=== PATIENT | male | born 1980 | race Caucasian/White ===

== ENCOUNTER 2020-01-06 10:29 | Emergency (ER) | payer SELFPAY ==
[2020-01-06] MEDS ORDERED: Aspirin 81 MG Tab.Chew PO ONE (10:40)
[2020-01-06] MEDS ORDERED: Nitroglycerin 0.4 MG Tab.SL SL PRN (10:40)
--- NOTE | 2020-01-06 10:40 | EDM.PDOC ---
ED HPI GENERAL MEDICAL PROBLEM - General Chief Complaint: Chest Pain Stated Complaint: CHEST PAINS Time Seen by Provider: 01/06/20 10:40 Source of Information: Reports: Patient, RN, RN Notes Reviewed History Limitations: Reports: No Limitations - History of Present Illness INITIAL COMMENTS - FREE TEXT/NARRATIVE: Pt presents to ER from home by POV with c/o onset of chest pain this morning while at rest. Pt report 3 days of feeling extra or skipped heart beats. Denies Hx of CAD, MD, or arrhythmias. Denies cough, edema, orthopnea, fever, chills, or COVID exposure. Onset: Today Duration: Constant Location: Reports: Chest Quality: Reports: Ache, Pressure Severity: Moderate Improves with: Reports: None Worsens with: Reports: None Associated Symptoms: Reports: No Other Symptoms - Related Data Allergies Allergy/AdvReac Type Severity Reaction Status Date / Time Penicillins Allergy Rash Verified 01/06/20 10:43 Home Meds: Home Meds . [No Known Home Meds] 01/06/20 [History] Past Medical History - Past Health History Medical/Surgical History: Denies Medical/Surgical History Social & Family History - Family History Family Medical History: Noncontributory - Living Situation & Occupation Living situation: Reports: with Family Occupation: Employed ED ROS GENERAL - Review of Systems Review Of Systems: Comprehensive ROS is negative, except as noted in HPI. ED EXAM, GENERAL - Physical Exam Exam: See Below Exam Limited By: No Limitations General Appearance: Alert, WD/WN, No Apparent Distress, Anxious Eye Exam: Bilateral Eye: Normal Inspection Nose: Normal Inspection Throat/Mouth: Normal Inspection, Normal Lips, Normal Voice, No Airway Compromise Head: Atraumatic, Normocephalic Neck: Normal Inspection, Full Range of Motion Respiratory/Chest: No Respiratory Distress, Lungs Clear, Normal Breath Sounds, No Accessory Muscle Use, Chest Non-Tender Cardiovascular: Normal Peripheral Pulses, Regular Rate, Rhythm, No Edema, No Gallop, No JVD, No Murmur, No Rub GI/Abdominal: Normal Bowel Sounds, Soft, Non-Tender, No Organomegaly, No Distention, No Abnormal Bruit, No Mass Back Exam: Normal Inspection Extremities: Normal Inspection, Normal Range of Motion, Non-Tender, No Pedal Edema, Normal Capillary Refill. No: Joint Swelling, Thony's Sign Neurological: Alert, Oriented, CN II-XII Intact, Normal Cognition, Normal Gait, No Motor/Sensory Deficits Psychiatric: Normal Affect, Anxious Skin Exam: Warm, Dry, Intact, Normal Color, No Rash EKG INTERPRETATION EKG Date: 01/06/20 Time: 10:42 Rhythm: Other (SR) Rate (Beats/Min): 66 [place]: Normal P-Wave: Present QRS: Normal ST-T: Normal QT: Normal Comparison: NA - No Prior EKG EKG Interpretation Comments: No acute ischemic changes. Course - Vital Signs Last Recorded V/S: Last Vital Signs Temp 98.7 F 01/06/20 10:44 Pulse 68 01/06/20 10:44 Resp 14 01/06/20 10:44 BP 126/80 01/06/20 10:44 Pulse Ox 99 01/06/20 10:44 - Orders/Labs/Meds Orders: Active Orders 24 hr Category Date Time Status EKG 12 Lead [EKG Documentation Completion] [RC] STAT Care 01/06/20 10:41 Active Peripheral IV Care [RC] . DIRECTED Care 01/06/20 10:41 Active D Dimer [D-DIMER QUANTITATIVE] [COAG] Stat Lab 01/06/20 10:49 Results INR,PT,PROTHROMBIN TIME [COAG] Stat Lab 01/06/20 10:49 Results PTT,PARTIAL THROMBOPLSTIN TIME [COAG] Stat Lab 01/06/20 10:49 Results Nitroglycerin [Nitrostat] Med 01/06/20 10:40 Active 0.4 mg SL Q5M PRN Sodium Chloride 0.9% [Saline Flush] Med 01/06/20 10:41 Active 10 ml FLUSH ASDIRECTED PRN Peripheral IV Insertion Adult [OM.PC] Stat Oth 01/06/20 10:41 Ordered Medication Orders Nitroglycerin (Nitrostat) 0.4 mg SL Q5M PRN PRN Reason: Chest Pain Sodium Chloride (Saline Flush) 10 ml FLUSH ASDIRECTED PRN PRN Reason: Keep Vein Open Last Admin: 01/06/20 10:56 Dose: 10 ml Documented by: ARCHIE Labs: Laboratory Tests 01/06/20 01/06/20 01/06/20 Range/Units 10:49 10:49 10:49 WBC 8.6 (5.0-10.0) 10^3/uL RBC 5.01 (4.6-6.2) 10^6/uL Hgb 15.7 (14.0-18.0) g/dL Hct 43.4 (40.0-54.0) % MCV 86.6 (80-100) fL MCH 31.3 (27.0-34.0) pg MCHC 36.2 H (33.0-35.0) g/dL Plt Count 193 (150-450) 10^3/uL Neut % (Auto) 55.7 (42.2-75.2) % Lymph % (Auto) 34.0 (20.5-50.1) % Wood % (Auto) 7.5 (2-8) % Eos % (Auto) 2.1 (1.0-3.0) % Baso % (Auto) 0.7 (0.0-1.0) % D-Dimer, Quantitative < 100 (0-400) ng/mL Sodium 139 (136-145) mmol/L Potassium 3.6 (3.5-5.1) mmol/L Chloride 105 (98-107) mmol/L Carbon Dioxide 26 (21-32) mmol/L Anion Gap 11.6 (7-13) mEq/L BUN 15 (7-18) mg/dL Creatinine 1.15 (0.70-1.30) mg/dL Est Cr Clr Drug Dosing 86.24 mL/min Estimated GFR (MDRD) > 60 BUN/Creatinine Ratio 13.0 (No establ ref range) Glucose 107 H (74-99) mg/dL Calcium 8.0 L (8.5-10.1) mg/dL Magnesium 1.9 (1.8-2.4) mg/dL Total Bilirubin 0.4 (0.2-1.0) mg/dL AST 19 (15-37) U/L ALT 27 (16-63) U/L Alkaline Phosphatase 120 H (46-116) U/L Troponin I < 0.017 (0.000-0.056) ng/mL Total Protein 6.5 (6.4-8.2) g/dL Albumin 3.6 (3.4-5.0) g/dL Globulin 2.9 Albumin/Globulin Ratio 1.2 Lipase 209 (73-393) U/L TSH, Ultra Sensitive 2.65 (0.36-3.74) uIU/mL Meds: Medications Generic Name Dose Route Start Last Admin Trade Name Freq PRN Reason Stop Dose Admin Nitroglycerin 0.4 mg 01/06/20 10:40 Nitrostat SL Q5M PRN Chest Pain Sodium Chloride 10 ml 01/06/20 10:41 01/06/20 10:56 Saline Flush FLUSH 10 ml ASDIRECTED PRN Administration Keep Vein Open Discontinued Medications Generic Name Dose Route Start Last Admin Trade Name Freq PRN Reason Stop Dose Admin Aspirin 324 mg 01/06/20 10:40 01/06/20 10:55 Aspirin PO 01/06/20 10:41 324 mg ONETIME ONE Administration - Radiology Interpretation Free Text/Narrative:: [facility] Final Radiology Report Call: [phone] assistance Online chat: [email or web address] Name: EBONI LEE Age: 39Years M Date: 01/06/2020 SSN: -- : [id number] Study: CR CHEST 1V FRONTAL Requesting Physician: JOAO WASHBURN Images: 1 Addl Studies: Provided Clinical History: chest pain Contrast: Contrast Medium: Contrast Amount: Contrast Method: CONFIDENTIALITY STATEMENT This report is intended only for use by the referring physician, and only in accordance with law. If you received this in error, call [phone]. Page 1 of 1 PROCEDURE INFORMATION: Exam: XR Chest, 1 View Exam date and time: 01/06/2020 10:47 AM Age: 39 years old Clinical indication: Other: Chest pain TECHNIQUE: Imaging protocol: XR of the chest Views: 1 view. COMPARISON: No relevant prior studies available. FINDINGS: Lungs: The lungs are normally expanded and clear. Pleural space: Normal. Heart/Mediastinum: Normal heart and cardiomediastinal silhouette. Vasculature: Normal pulmonary vessel caliber. Normal aorta. Bones/joints: The bones are intact. IMPRESSION: No evident disease or abnormalities. Thank you for allowing us to participate in the care of your patient. Dictated and Authenticated by: Eboni Cole MD 01/06/2020 11:00 AM Central Time ([place] & [place]) Departure - Departure Time of Disposition: 11:57 Disposition: Home, Self-Care 01 Condition: Good Clinical Impression: PVC's (premature ventricular contractions), Atypical chest pain Instructions: Premature Ventricular Contraction, Nonspecific Chest Pain, Adult, [id number] Forms: ED Department Discharge Additional Instructions: May try over the counter Magnesium supplement 500mg once daily. Follow up in clinic in 3 to 5 days for recheck. Sepsis Event Note (ED) - Focused Exam Vital Signs: Vital Signs Temp Pulse Resp BP Pulse Ox 01/06/20 10:44 98.7 F 68 14 126/80 99 - My Orders Last 24 Hours: My Active Orders 01/06/20 10:40 Nitroglycerin [Nitrostat] 0.4 mg SL Q5M PRN 01/06/20 10:41 EKG 12 Lead [EKG Documentation Completion] [RC] STAT Peripheral IV Care [RC] . DIRECTED Sodium Chloride 0.9% [Saline Flush] 10 ml FLUSH ASDIRECTED PRN Peripheral IV Insertion Adult [OM.PC] Stat 01/06/20 10:49 D Dimer [D-DIMER QUANTITATIVE] [COAG] Stat INR,PT,PROTHROMBIN TIME [COAG] Stat PTT,PARTIAL THROMBOPLSTIN TIME [COAG] Stat - Assessment/Plan Last 24 Hours: My Active Orders 01/06/20 10:40 Nitroglycerin [Nitrostat] 0.4 mg SL Q5M PRN 01/06/20 10:41 EKG 12 Lead [EKG Documentation Completion] [RC] STAT Peripheral IV Care [RC] . DIRECTED Sodium Chloride 0.9% [Saline Flush] 10 ml FLUSH ASDIRECTED PRN Peripheral IV Insertion Adult [OM.PC] Stat 01/06/20 10:49 D Dimer [D-DIMER QUANTITATIVE] [COAG] Stat INR,PT,PROTHROMBIN TIME [COAG] Stat PTT,PARTIAL THROMBOPLSTIN TIME [COAG] Stat
[2020-01-06] MEDS ORDERED: Sodium Chloride 0.9% 10 ML Syringe FLUSH PRN (10:41)
--- NOTE | 2020-01-06 11:00 | CR ---
PROCEDURE INFORMATION: Exam: XR Chest, 1 View Exam date and time: 01/06/2020 10:47 AM Age: 39 years old Clinical indication: Other: Chest pain TECHNIQUE: Imaging protocol: XR of the chest Views: 1 view. COMPARISON: No relevant prior studies available. FINDINGS: Lungs: The lungs are normally expanded and clear. Pleural space: Normal. Heart/Mediastinum: Normal heart and cardiomediastinal silhouette. Vasculature: Normal pulmonary vessel caliber. Normal aorta. Bones/joints: The bones are intact. IMPRESSION: No evident disease or abnormalities.
[2020-01-06 11:21] LABS: ANION GAP 11.6 mEq/L (7-13); CHLORIDE,CL 105 mmol/L (98-107); SODIUM,NA 139 mmol/L (136-145)
[2020-01-06 12:03] LABS: PTT,PARTIAL THROMBOPLSTIN TIME 22.3 SEC (22.0-34.0)
== END 2020-01-06 12:05 | disposition home or self-care (01) ==
LOC: DL.ED 10:29
DX: I49.3 Ventricular premature depolarization (principal); Z88.0 Allergy status to penicillin
CPT/HCPCS: 36415; 71045; 80053; 83690; 83735; 84443; 84484; 85025; 85379; 85610; 85730; 93005; 99285-25; A9270-GY

== ENCOUNTER 2020-01-18 00:55 | Emergency (ER) | payer OTHER ==
[2020-01-18] MEDS ORDERED: Iopamidol 612 MG/ML 100 ML Bottle IVPUSH ONE (00:56)
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
[2020-01-18 01:43] LABS: ANION GAP 16.5 mEq/L (7-13); CHLORIDE,CL 106 mmol/L (98-107); SODIUM,NA 143 mmol/L (136-145)
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
[2020-01-18 01:50] LABS: PTT,PARTIAL THROMBOPLSTIN TIME 20.3 SEC (22.0-34.0)
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
== END 2020-01-18 03:30 ==
LOC: DL.ED 00:55
DX: G93.6 Cerebral edema (principal); Z88.0 Allergy status to penicillin; Z90.49 Acquired absence of other specified parts of digestive tract
CPT/HCPCS: 36415; 70450; 71260; 72125; 74177; 80053; 80307; 85025; 85610; 85730; 99285; Q9967

== ENCOUNTER 2020-10-25 13:06 | Emergency (ER) | payer MEDICAID ==
[2020-10-25] MEDS ORDERED: Sodium Chloride 0.9% 1,000 ML IV ONE (16:30)
[2020-10-25] MEDS ORDERED: Ondansetron 4 MG/2 ML SDV IV ONE (16:30)
[2020-10-25] MEDS ORDERED: Sodium Chloride 0.9% 10 ML Syringe FLUSH PRN (16:30)
--- NOTE | 2020-10-25 16:30 | EDM.PDOC ---
<Olivia Barajas - Last Filed: 10/26/20 04:46> ED HPI GENERAL MEDICAL PROBLEM - General Chief Complaint: Gastrointestinal Problem Stated Complaint: [id number] CAN'T KEEP ANYTHING DOWN Time Seen by Provider: 10/25/20 16:29 - History of Present Illness INITIAL COMMENTS - FREE TEXT/NARRATIVE: Saul is a 39 y/o male who presents to the ED via personal vehicle with complaints of nausea, vomiting, and abdominal pain. The patient reports his symptoms began at approximately 0500 and has progressively worsened in that time. The patient has taken antacids and Pepto Bismol with [id number] alleviation of symptoms. He rates his abdominal pain at a 3/10 which he characterizes as a burning. He denies recent illness, fever, shaking chills, palpitations, dysuria, or diarrhea. He states he is concerned he has become dehydrated from the frequency with which he has been vomiting. He attests to smoking one pack of cigarettes per day; he denies alcohol or recreational drug use. - Related Data Allergies Allergy/AdvReac Type Severity Reaction Status Date / Time Penicillins Allergy Rash Verified 10/25/20 14:19 Home Meds: Home Meds . [No Known Home Meds] 01/06/20 [History] Course - Re-Assessments/Exams Free Text/Narrative Re-Assessment/Exam: 10/25/20 NS 1L bolus initiated. Zofran IVP and famotidine IVP ordered. WBC slightly elevated at 10.5, no left shift appreciated. Hgb WNL at 16.8. Electrolytes, kidney function, and liver function appropriate via CMP. Amylase and Lipase normal. Total Bili slightly elevated at 1.2 UA unremarkable. Findings of lab work reviewed with patient. Will treat with Zofran ODT and famotidine. Patient states pain to epigastric region still present following medication and IVF, however he is requesting to leave the ED to "..go get a pop." Discussed supportive cares and avoidance of carbonation while experiencing gastrointestinal symptoms. Patient left ED without prescriptions or discharge instructions. Departure - Departure Time of Disposition: 19:07 Disposition: Home, Self-Care 01 Condition: Good Clinical Impression: Gastritis Qualifiers: Gastritis type: unspecified gastritis Chronicity: acute Gastritis bleeding: without bleeding Qualified Code(s): K29.00 - Acute gastritis without bleeding Vomiting Qualifiers: Vomiting type: unspecified Vomiting Intractability: non-intractable Nausea presence: with nausea Qualified Code(s): R11.2 - Nausea with vomiting, unspecified - Discharge Information *PRESCRIPTION DRUG MONITORING PROGRAM REVIEWED*: Not Applicable *COPY OF PRESCRIPTION DRUG MONITORING REPORT IN PATIENT [place]: Not Applicable Instructions: Gastritis, Adult, [id number], Nausea and Vomiting, Adult Referrals: PCP,None [Primary Care Provider] - Forms: ED Department Discharge Additional Instructions: Rx: Zofran Rx: famotidine 1.) Drink small sips of water, frequently to avoid vomiting. 2.) Eat small, snack-like meals. 3.) Eat a bland diet, avoiding spicy, greasy, and high-fat foods. <Bhupinder Moreira - Last Filed: 10/26/20 08:12> ED HPI GENERAL MEDICAL PROBLEM - General Source of Information: Reports: Patient, RN, RN Notes Reviewed History Limitations: Reports: No Limitations Abdominal Pain Score (Numeric/FACES): 3 Past Medical History - Past Health History Medical/Surgical History: Denies Medical/Surgical History Genitourinary History: Reports: STD - Past Surgical History GI Surgical History: Reports: Appendectomy, Cholecystectomy Social & Family History - Family History Family Medical History: No Pertinent Family History - Tobacco Use Tobacco Use Status *Q: Current Every Day Tobacco User Years of Tobacco use: 25 Packs/Tins Daily: 1 - Caffeine Use Caffeine Use: Reports: Coffee, Energy Drinks - Recreational Drug Use Recreational Drug Use: No Drug Use in Last 12 Months: No - Living Situation & Occupation Living situation: Reports: with Family Occupation: Employed ED ROS GENERAL - Review of Systems Review Of Systems: Comprehensive ROS is negative, except as noted in HPI. ED EXAM, GI/ABD - Physical Exam Exam: See Below Exam Limited By: No Limitations General Appearance: Alert, WD/WN, No Apparent Distress Eyes: Bilateral: Normal Appearance (No scleral icterus) Nose: Normal Inspection Throat/Mouth: Normal Lips, Normal Voice, No Airway Compromise Head: Atraumatic, Normocephalic Neck: Normal Inspection, Non-Tender, Full Range of Motion Respiratory/Chest: No Respiratory Distress, Lungs Clear, Normal Breath Sounds, No Accessory Muscle Use, Chest Non-Tender Cardiovascular: Normal Peripheral Pulses, Regular Rate, Rhythm, No Edema, No Gallop, No JVD, No Murmur, No Rub GI/Abdominal Exam: Normal Bowel Sounds, Soft, No Organomegaly, No Distention, No Abnormal Bruit, Tender (Mild epigastric tenderness). No: Guarding, Rigid, Rebound Back Exam: Normal Inspection Extremities: Normal Inspection Neurological: Alert, Oriented, No Motor/Sensory Deficits Psychiatric: Normal Mood Skin Exam: Warm, Dry, Intact, Normal Color, No Rash Course - Vital Signs Last Recorded V/S: Last Vital Signs Temp 98.2 F 10/25/20 14:12 Pulse 100 10/25/20 14:12 Resp 16 10/25/20 14:12 BP 156/111 H 10/25/20 14:12 Pulse Ox 99 10/25/20 14:12 - Orders/Labs/Meds Orders: Active Orders 24 hr Category Date Time Status Peripheral IV Insertion Adult [OM.PC] Stat Oth 10/25/20 16:30 Ordered Labs: Laboratory Tests 10/25/20 10/25/20 10/25/20 Range/Units 16:42 16:42 17:32 WBC 10.5 H (5.0-10.0) 10^3/uL RBC 5.40 (4.6-6.2) 10^6/uL Hgb 16.8 D (14.0-18.0) g/dL Hct 46.5 (40.0-54.0) % MCV 86.1 (80-100) fL MCH 31.1 (27.0-34.0) pg MCHC 36.1 H (33.0-35.0) g/dL Plt Count 244 (150-450) 10^3/uL Neut % (Auto) 63.8 (42.2-75.2) % Lymph % (Auto) 25.4 (20.5-50.1) % [place] % (Auto) 9.9 H (2-8) % Eos % (Auto) 0.5 L (1.0-3.0) % Baso % (Auto) 0.4 (0.0-1.0) % Sodium 141 (136-145) mmol/L Potassium 3.6 (3.5-5.1) mmol/L Chloride 102 (98-107) mmol/L Carbon Dioxide 27 (21-32) mmol/L Anion Gap 15.6 H (7-13) mEq/L BUN 24 H (7-18) mg/dL Creatinine 1.24 (0.70-1.30) mg/dL Est Cr Clr Drug Dosing 79.98 mL/min Estimated GFR (MDRD) > 60 BUN/Creatinine Ratio 19.4 (No establ ref range) Glucose 109 H (70-99) mg/dL Calcium 8.6 (8.5-10.1) mg/dL Total Bilirubin 1.2 H (0.2-1.0) mg/dL AST 49 H (15-37) U/L ALT 44 (16-63) U/L Alkaline Phosphatase 120 H (46-116) U/L Total Protein 7.6 (6.4-8.2) g/dL Albumin 4.3 (3.4-5.0) g/dL Globulin 3.3 Albumin/Globulin Ratio 1.3 Amylase 35 (25-115) U/L Lipase 86 (73-393) U/L Urine Color Yellow (YELLOW) Urine Appearance Clear (CLEAR) Urine pH 6.5 (5.0-9.0) Ur Specific [place] 1.010 (1.005-1.030) Urine Protein Negative (NEGATIVE) Urine Glucose (UA) Negative (NEGATIVE) Urine Ketones Trace H (NEGATIVE) Urine Occult Blood Negative (NEGATIVE) Urine Nitrite Negative (NEGATIVE) Urine Bilirubin Negative (NEGATIVE) Urine Urobilinogen 0.2 (0.2-1.0) mg/dL Ur Leukocyte Esterase Negative (NEGATIVE) Meds: Medications Discontinued Medications Generic Name Dose Route Start Last Admin Trade Name Freq PRN Reason Stop Dose Admin Famotidine 20 mg 10/25/20 16:31 10/25/20 16:48 Famotidine 20 Mg/2 Ml Sdv IVPUSH 10/25/20 16:32 20 mg ONETIME ONE Administration Sodium Chloride 1,000 mls @ 999 mls/hr 10/25/20 16:30 10/25/20 16:48 Normal Saline IV 10/25/20 17:30 999 mls/hr .BOLUS ONE Administration Ondansetron HCl 4 mg 10/25/20 16:30 10/25/20 16:48 Ondansetron 4 Mg/2 Ml Sdv IV 10/25/20 16:31 4 mg ONETIME ONE Administration Sodium Chloride 10 ml 10/25/20 16:30 10/25/20 16:48 Sodium Chloride 0.9% 10 Ml Syringe FLUSH 10 ml ASDIRECTED PRN Administration Keep Vein Open Sepsis Event Note (ED) - Evaluation Sepsis Screening Result: No Definite Risk - My Orders Last 24 Hours: My Active Orders 10/25/20 16:30 Peripheral IV Insertion Adult [OM.PC] Stat - Assessment/Plan Last 24 Hours: My Active Orders 10/25/20 16:30 Peripheral IV Insertion Adult [OM.PC] Stat
[2020-10-25] MEDS ORDERED: Famotidine 20 MG/2 ML SDV IVPUSH ONE (16:31)
[2020-10-25 17:10] LABS: ANION GAP 15.6 mEq/L (7-13); CHLORIDE,CL 102 mmol/L (98-107); SODIUM,NA 141 mmol/L (136-145)
== END 2020-10-25 19:36 | disposition home or self-care (01) ==
LOC: DL.ED 13:06
DX: K29.00 Acute gastritis without bleeding (principal); D72.829 Elevated white blood cell count, unspecified; Z88.0 Allergy status to penicillin; Z72.0 Tobacco use
CPT/HCPCS: 36415; 80053; 81003; 82150; 83690; 85025; 96374; 96375; 99283; 99284-25; J2405; J3490; J7030

== ENCOUNTER 2021-01-28 10:52 | Emergency (ER) | payer MEDICAID ==
[2021-01-28] MEDS ORDERED: Midazolam 1 MG/ML 2 ML SDV IM ONE (11:01)
[2021-01-28] MEDS ORDERED: diphenhydrAMINE 50 MG/ML SDV IM ONE (11:08)
[2021-01-28] MEDS ORDERED: Haloperidol Lactate 5 MG/ML SDV ONE (11:09)
[2021-01-28] MEDS ORDERED: Haloperidol Lactate 5 MG/ML SDV IM ONE (11:09)
[2021-01-28] MEDS ORDERED: LORazepam 2 MG/ML SDV IM ONE ×2 (11:09→11:51)
[2021-01-28] MEDS ORDERED: diphenhydrAMINE 50 MG/ML SDV ONE (11:09)
[2021-01-28] MEDS ORDERED: LORazepam 2 MG/ML SDV ONE (11:10)
[2021-01-28 12:15] LABS: ANION GAP 15.1 mEq/L (7-13); CHLORIDE,CL 107 mmol/L (98-107); SODIUM,NA 146 mmol/L (136-145)
[2021-01-28 12:16] LABS: ACETAMINOPHEN 0 ug/mL (10-30 (Therapeutic))
[2021-01-28] MEDS ORDERED: Sodium Chloride 0.9% 10 ML Syringe FLUSH PRN (12:24)
[2021-01-28] MEDS ORDERED: Lactated Ringers 1,000 ML IV ONE (12:25)
[2021-01-28] MEDS ORDERED: LORazepam 2 MG/ML SDV IVPUSH ONE (12:57)
[2021-01-28 13:11] LABS: AMPHETAMINES,URINE NEGATIVE (NEGATIVE); BARBITURATES,URINE NEGATIVE (NEGATIVE); BENZODIAZEPINE,URINE NEGATIVE (NEGATIVE); MDMA (ECSTASY), URINE POSITIVE (NEGATIVE); METHADONE,URINE NEGATIVE (NEGATIVE); METHAMPHETAMINES,URINE POSITIVE (NEGATIVE); OPIATES,URINE NEGATIVE (NEGATIVE); OXYCODONE,URINE NEGATIVE (NEGATIVE); PHENCYCLIDINE,URINE NEGATIVE (NEGATIVE); TCA,URINE NEGATIVE (NEGATIVE)
--- NOTE | 2021-01-28 14:44 | EDM.PDOC ---
<Leonard Guillermo Gretchen - Last Filed: 01/28/21 14:43> ED HPI GENERAL MEDICAL PROBLEM - General Chief Complaint: Skin Complaint Stated Complaint: Bed Bugs Time Seen by Provider: 01/28/21 10:52 Source of Information: Reports: Patient History Limitations: Reports: No Limitations - History of Present Illness INITIAL COMMENTS - FREE TEXT/NARRATIVE: pt brought in by [facility] for c/o having bugs crawling on him, neighbors state that he has been up all night screaming that he has bugs on him. pt is uncooperative and hallucations about bugs crawling on him and is pulling them off. EMS relays that there is pesticides all through the house and there may be some concern of contamination. Onset: Unknown/Unsure - Related Data Allergies Allergy/AdvReac Type Severity Reaction Status Date / Time Penicillins Allergy Rash Verified 10/25/20 14:19 Home Meds: Home Meds . [No Known Home Meds] 01/06/20 [History] Past Medical History - Past Health History Medical/Surgical History: Denies Medical/Surgical History Genitourinary History: Reports: STD - Past Surgical History GI Surgical History: Reports: Appendectomy, Cholecystectomy Social & Family History - Family History Family Medical History: No Pertinent Family History - Tobacco Use Tobacco Use Status *Q: Unknown Ever Used Tobacco - Caffeine Use Caffeine Use: Reports: Coffee, Energy Drinks - Recreational Drug Use Recreational Drug Use Frequency: Patient Refuses To Answer - Living Situation & Occupation Living situation: Reports: with Family Occupation: Employed ED ROS GENERAL - Review of Systems Review Of Systems: Unable To Obtain Reason Not Obtained: combative, hallucinating ED EXAM, SKIN/RASH Exam: See Below Exam Limited By: Combative/Threatening General Appearance: Moderate Distress Eye Exam: Bilateral Eye: PERRL (sluggish) Nose: Normal Inspection, Normal Mucosa, No Blood Throat/Mouth: Normal Inspection, Normal Lips, Normal Teeth, Normal Gums, Normal Oropharynx, Normal Voice, No Airway Compromise Head: Atraumatic, Normocephalic Neck: Supple, Non-Tender Respiratory/Chest: Lungs Clear, Normal Breath Sounds Cardiovascular: Tachycardia Peripheral Pulses: 2+: Radial (L), Radial (R) GI/Abdominal: Soft, Non-Tender (Male) Exam: Deferred Rectal (Males) Exam: Deferred Back Exam: Normal Inspection, Full Range of Motion Extremities: Normal Inspection, Normal Range of Motion, Non-Tender, No Pedal Edema, Normal Capillary Refill Neurological: Other (hallucinating combative) Skin: Warm, Dry, Intact Course - Re-Assessments/Exams Free Text/Narrative Re-Assessment/Exam: 01/28/21 14:44 pt very combative and hallucinating requiring heavy sedation and four point restraint. Departure - Departure Disposition: DC/Tfer to Psych Hosp/Unit 65 Clinical Impression: Methamphetamine use, History of schizophrenia - Discharge Information Instructions: Substance Use Disorder and Mental Illness, Methamphetamines Use Disorder Referrals: PCP,None [Primary Care Provider] - Forms: ED Department Discharge Additional Instructions: 1.) Continue with safety plan via [facility] 2.) Do not use methamphetamines or additional recreational drugs <Olivia Barajas - Last Filed: 01/29/21 05:45> Course - Vital Signs Last Recorded V/S: Last Vital Signs Temp 97.2 F 01/28/21 11:00 Pulse 66 01/28/21 18:00 Resp 12 01/28/21 18:00 BP 144/94 H 01/28/21 18:00 Pulse Ox 97 01/28/21 18:00 - Orders/Labs/Meds Orders: Active Orders 24 hr Category Date Time Status Initiate/Renew Violent-Self Destructive Restraints >/= Care 01/28/21 12:15 Ordered 18yo Q4H Insert Urinary Catheter [OM.PC] Stat Care 01/28/21 11:10 Ordered Peripheral IV Insertion Adult [OM.PC] Stat Oth 01/28/21 12:24 Ordered Labs: Laboratory Tests 01/28/21 01/28/21 01/28/21 Range/Units 11:51 11:51 11:51 WBC 9.4 (5.0-10.0) 10^3/uL RBC 4.79 (4.6-6.2) 10^6/uL Hgb 14.8 D (14.0-18.0) g/dL Hct 41.6 (40.0-54.0) % MCV 86.8 (80-100) fL MCH 30.9 (27.0-34.0) pg MCHC 35.6 H (33.0-35.0) g/dL Plt Count 241 (150-450) 10^3/uL Neut % (Auto) 63.4 (42.2-75.2) % Lymph % (Auto) 26.0 (20.5-50.1) % [place] % (Auto) 9.6 H (2-8) % Eos % (Auto) 0.7 L (1.0-3.0) % Baso % (Auto) 0.3 (0.0-1.0) % Sodium 146 H (136-145) mmol/L Potassium 4.1 (3.5-5.1) mmol/L Chloride 107 (98-107) mmol/L Carbon Dioxide 28 (21-32) mmol/L Anion Gap 15.1 H (7-13) mEq/L BUN 20 H (7-18) mg/dL Creatinine 1.32 H (0.70-1.30) mg/dL Est Cr Clr Drug Dosing TNP Estimated GFR (MDRD) > 60 BUN/Creatinine Ratio 15.2 (No establ ref range) Glucose 97 (70-99) mg/dL Calcium 9.1 (8.5-10.1) mg/dL Total Bilirubin 0.6 (0.2-1.0) mg/dL AST 26 (15-37) U/L ALT 40 (16-63) U/L Alkaline Phosphatase 122 H (46-116) U/L Total Protein 6.9 (6.4-8.2) g/dL Albumin 3.7 (3.4-5.0) g/dL Globulin 3.2 Albumin/Globulin Ratio 1.2 Urine Color (YELLOW) Urine Appearance (CLEAR) Urine pH (5.0-9.0) Ur Specific [place] (1.005-1.030) Urine Protein (NEGATIVE) Urine Glucose (UA) (NEGATIVE) Urine Ketones (NEGATIVE) Urine Occult Blood (NEGATIVE) Urine Nitrite (NEGATIVE) Urine Bilirubin (NEGATIVE) Urine Urobilinogen (0.2-1.0) mg/dL Ur Leukocyte Esterase (NEGATIVE) U Hyaline Cast (Auto) Urine RBC (0-5) /HPF Urine WBC (0-5/HPF) /HPF Ur Epithelial Cells (NOT SEEN) /HPF Amorphous Sediment (NOT SEEN) /HPF Urine Bacteria (0-FEW/HPF) /HPF Fine Granular Casts (NOT SEEN) /LPF Urine Mucus (NOT SEEN) /LPF Salicylates < 2.8 L (2.8-20(Therapeutic)) mg/dL Urine Opiates Screen (NEGATIVE) Ur Oxycodone Screen (NEGATIVE) Urine Methadone Screen (NEGATIVE) Acetaminophen 0 L (10-30 (Therapeutic)) ug/mL Ur Barbiturates Screen (NEGATIVE) U Tricyclic Antidepress (NEGATIVE) Ur Phencyclidine Scrn (NEGATIVE) Ur Amphetamine Screen (NEGATIVE) U Methamphetamines Scrn (NEGATIVE) Urine MDMA Screen (NEGATIVE) U Benzodiazepines Scrn (NEGATIVE) Urine Cocaine Screen (NEGATIVE) U Marijuana (THC) Screen (NEGATIVE) Ethyl Alcohol < 3 (0) mg/dL SARS-CoV-2 RNA (JOSE) (NEGATIVE) 01/28/21 01/28/21 01/28/21 Range/Units 12:40 12:41 12:41 WBC (5.0-10.0) 10^3/uL RBC (4.6-6.2) 10^6/uL Hgb (14.0-18.0) g/dL Hct (40.0-54.0) % MCV (80-100) fL MCH (27.0-34.0) pg MCHC (33.0-35.0) g/dL Plt Count (150-450) 10^3/uL Neut % (Auto) (42.2-75.2) % Lymph % (Auto) (20.5-50.1) % [place] % (Auto) (2-8) % Eos % (Auto) (1.0-3.0) % Baso % (Auto) (0.0-1.0) % Sodium (136-145) mmol/L Potassium (3.5-5.1) mmol/L Chloride (98-107) mmol/L Carbon Dioxide (21-32) mmol/L Anion Gap (7-13) mEq/L BUN (7-18) mg/dL Creatinine (0.70-1.30) mg/dL Est Cr Clr Drug Dosing Estimated GFR (MDRD) BUN/Creatinine Ratio (No establ ref range) Glucose (70-99) mg/dL Calcium (8.5-10.1) mg/dL Total Bilirubin (0.2-1.0) mg/dL AST (15-37) U/L ALT (16-63) U/L Alkaline Phosphatase (46-116) U/L Total Protein (6.4-8.2) g/dL Albumin (3.4-5.0) g/dL Globulin Albumin/Globulin Ratio Urine Color Yellow (YELLOW) Urine Appearance Clear (CLEAR) Urine pH 5.5 (5.0-9.0) Ur Specific [place] >= 1.030 (1.005-1.030) Urine Protein 30 H (NEGATIVE) Urine Glucose (UA) Negative (NEGATIVE) Urine Ketones 40 H (NEGATIVE) Urine Occult Blood Trace-intact H (NEGATIVE) Urine Nitrite Negative (NEGATIVE) Urine Bilirubin Small H (NEGATIVE) Urine Urobilinogen 1.0 (0.2-1.0) mg/dL Ur Leukocyte Esterase Negative (NEGATIVE) U Hyaline Cast (Auto) Few Urine RBC 5-10 H (0-5) /HPF Urine WBC 0-5 (0-5/HPF) /HPF Ur Epithelial Cells Occasional (NOT SEEN) /HPF Amorphous Sediment Few (NOT SEEN) /HPF Urine Bacteria Occasional (0-FEW/HPF) /HPF Fine Granular Casts Few H (NOT SEEN) /LPF Urine Mucus Few H (NOT SEEN) /LPF Salicylates (2.8-20(Therapeutic)) mg/dL Urine Opiates Screen Negative (NEGATIVE) Ur Oxycodone Screen Negative (NEGATIVE) Urine Methadone Screen Negative (NEGATIVE) Acetaminophen (10-30 (Therapeutic)) ug/mL Ur Barbiturates Screen Negative (NEGATIVE) U Tricyclic Antidepress Negative (NEGATIVE) Ur Phencyclidine Scrn Negative (NEGATIVE) Ur Amphetamine Screen Negative (NEGATIVE) U Methamphetamines Scrn Positive H (NEGATIVE) Urine MDMA Screen Positive H (NEGATIVE) U Benzodiazepines Scrn Negative (NEGATIVE) Urine Cocaine Screen Negative (NEGATIVE) U Marijuana (THC) Screen Positive H (NEGATIVE) Ethyl Alcohol (0) mg/dL SARS-CoV-2 RNA (JOSE) Negative (NEGATIVE) Meds: Medications Discontinued Medications Generic Name Dose Route Start Last Admin Trade Name Freq PRN Reason Stop Dose Admin Diphenhydramine HCl 50 mg 01/28/21 11:08 01/28/21 12:04 Diphenhydramine 50 Mg/Ml Sdv IM 01/28/21 11:09 50 mg ONETIME ONE Administration Diphenhydramine HCl Confirm 01/28/21 11:09 01/28/21 11:58 Diphenhydramine 50 Mg/Ml Sdv Administered 01/28/21 11:10 Not Given Dose 50 mg .ROUTE .STK-MED ONE Haloperidol Lactate 10 mg 01/28/21 11:09 01/28/21 11:16 Haloperidol Lactate 5 Mg/Ml Sdv IM 01/28/21 11:10 10 mg ONETIME ONE Administration Haloperidol Lactate Confirm 01/28/21 11:09 01/28/21 11:58 Haloperidol Lactate 5 Mg/Ml Sdv Administered 01/28/21 11:10 Not Given Dose 5 mg .ROUTE .STK-MED ONE Lactated Ringer's 1,000 mls @ 999 mls/hr 01/28/21 12:25 01/28/21 12:45 Ringers, Lactated IV 01/28/21 13:25 999 mls/hr .BOLUS ONE Administration Lorazepam 2 mg 01/28/21 11:09 01/28/21 11:16 Lorazepam 2 Mg/Ml Sdv IM 01/28/21 11:10 2 mg ONETIME ONE Administration Lorazepam Confirm 01/28/21 11:10 01/28/21 11:58 Lorazepam 2 Mg/Ml Sdv Administered 01/28/21 11:11 Not Given Dose 2 mg .ROUTE .STK-MED ONE Lorazepam 2 mg 01/28/21 11:51 01/28/21 12:06 Lorazepam 2 Mg/Ml Sdv IM 01/28/21 11:52 2 mg ONETIME ONE Administration Lorazepam 2 mg 01/28/21 12:57 01/28/21 13:14 Lorazepam 2 Mg/Ml Sdv IVPUSH 01/28/21 12:58 2 mg ONETIME ONE Administration Midazolam HCl 5 mg 01/28/21 11:01 01/28/21 11:05 Midazolam 1 Mg/Ml 2 Ml Sdv IM 01/28/21 11:02 5 mg ONETIME ONE Administration Sodium Chloride 10 ml 01/28/21 12:24 01/28/21 13:40 Sodium Chloride 0.9% 10 Ml Syringe FLUSH 10 ml ASDIRECTED PRN Administration Keep Vein Open - Re-Assessments/Exams Free Text/Narrative Re-Assessment/Exam: 01/28/21 Care of patient assumed by internal communications writer at 1900. Patient able to rouse to state his name and location, unable to maintain conversation at this time due to lethargy, will continue to allow patient to rest off medications. Patient able to state name, open eyes, and hold conversation. Cristel from [facility] here to evaluate patient for CRU. Patient to discharge to the CRU. Findings of examination and lab work reviewed with patient. Patient verbalized understanding and agreement with the plan of care. Departure - Departure Time of Disposition: 02:10 Condition: Fair - Discharge Information *PRESCRIPTION DRUG MONITORING PROGRAM REVIEWED*: Not Applicable *COPY OF PRESCRIPTION DRUG MONITORING REPORT IN PATIENT [place]: Not Applicable Sepsis Event Note (ED) - Focused Exam Vital Signs: Vital Signs Pulse Resp BP Pulse Ox 01/28/21 18:00 66 12 144/94 H 97
== END 2021-01-29 02:15 ==
LOC: DL.ED 10:52
DX: F15.90 Other stimulant use, unspecified, uncomplicated (principal); Z88.0 Allergy status to penicillin
CPT/HCPCS: 36415; 80053; 80143; 80179; 80305-QW; 80307; 81001; 85025; 96372; 96374; 99285-25; J1200; J1630; J2060; J2250; J7120; U0002

== ENCOUNTER 2021-02-14 15:11 | Emergency (ER) | payer MEDICAID | END 2021-02-14 17:13 | disposition left against medical advice (07) | LOC: DL.ED 15:11 | DX: Z53.21 Procedure and treatment not carried out due to patient leaving prior to being seen by health care provider (principal) ==

== ENCOUNTER 2021-02-15 04:40 | Emergency (ER) | payer MEDICAID ==
--- NOTE | 2021-02-15 04:53 | EDM.PDOC ---
ED HPI GENERAL MEDICAL PROBLEM - General Stated Complaint: SCABIES Time Seen by Provider: 02/15/21 04:55 Source of Information: Reports: Patient - History of Present Illness INITIAL COMMENTS - FREE TEXT/NARRATIVE: Pt is here for scabies. He has had them for several weeks and reports he can see them burrowing in his skin. When he was here before, he was given a shot of something that got rid of them, but they are now back. He read that bleach works and has used straight bleach on his hands and chest to get rid of them. He has been digging and scratching at his arms and chest and has been "picking the bugs off" himself and filled a bucket. - Related Data Allergies Allergy/AdvReac Type Severity Reaction Status Date / Time cefaclor [From [facility]] Allergy Hives Verified 02/15/21 04:53 erythromycin base Allergy Hives Verified 02/15/21 04:53 Penicillins Allergy Rash Verified 02/15/21 04:53 Home Meds: Home Meds . [No Known Home Meds] 01/06/20 [History] Past Medical History - Past Health History Medical/Surgical History: Denies Medical/Surgical History Genitourinary History: Reports: STD - Past Surgical History GI Surgical History: Reports: Appendectomy, Cholecystectomy Social & Family History - Family History Family Medical History: No Pertinent Family History - Caffeine Use Caffeine Use: Reports: Coffee, Energy Drinks - Living Situation & Occupation Living situation: Reports: with Family Occupation: Employed ED ROS GENERAL - Review of Systems Review Of Systems: Comprehensive ROS is negative, except as noted in HPI. ED EXAM, SKIN/RASH Exam: See Below Exam Limited By: Intoxication General Appearance: Alert, Anxious Eye Exam: Bilateral Eye: Normal Inspection Ears: Normal External Exam Throat/Mouth: Normal Voice, No Airway Compromise Head: Atraumatic, Normocephalic Neck: Supple, Non-Tender Respiratory/Chest: No Respiratory Distress, No Accessory Muscle Use Cardiovascular: Normal Peripheral Pulses, Regular Rate, Rhythm GI/Abdominal: Soft, Non-Tender (Male) Exam: Deferred Rectal (Males) Exam: Deferred Back Exam: Normal Inspection, Full Range of Motion Extremities: Normal Inspection, Normal Range of Motion Neurological: Alert, No Motor/Sensory Deficits Psychiatric: Anxious Skin: Erythema, Other (excoriations, areas of picking) Location, Skin: Chest, Upper Extremity, Right, Upper Extremity, Left Course - Vital Signs Last Recorded V/S: Last Vital Signs Temp 98.1 F 02/15/21 04:50 Pulse 102 H 02/15/21 04:50 Resp 18 02/15/21 04:50 BP 142/125 H 02/15/21 04:50 Pulse Ox 96 02/15/21 04:50 - Orders/Labs/Meds Meds: Medications Discontinued Medications Generic Name Dose Route Start Last Admin Trade Name Javi PRN Reason Stop Dose Admin Diphenhydramine HCl 50 mg 02/15/21 06:06 Diphenhydramine 50 Mg/Ml Sdv IM 02/15/21 06:07 ONETIME ONE Haloperidol Lactate 5 mg 02/15/21 06:03 Haloperidol Lactate 5 Mg/Ml Sdv IM 02/15/21 06:04 ONETIME ONE Lorazepam 2 mg 02/15/21 05:49 Lorazepam 2 Mg/Ml Sdv IM 02/15/21 05:50 ONETIME ONE - Re-Assessments/Exams Free Text/Narrative Re-Assessment/Exam: Chart review shows he was brought in on 01/28 by EMS for complaints of bed bugs. He was found with multiple pesticides and quality checker in his home. He was hallucinating and combative at that time and was chemically and physically restrained. [facility] and he was taken to the CRU. He was noted to be positive for meth. I recommended we collect some blood and urine for full testing, but pt adamantly refused and started to get agitated. [facility] was contacted and they will be coming to evaluate him. Pt is waiting comfortably in his room carrying on a conversation with himself. 02/15/21 05:06 [facility] arrived and pt became very upset yelling that he hates [facility]. He just wants the medicine that was given to him last time for his bugs. He was given chemical sedation last time. Ordered 2 mg Ativan IM, but pt refused stating that he just wants the medicine for the scabies that he got last time. Informed pt that this was the medicine that he got last time, but he is refusing. He is now cursing and stating he wants to be transferred to [place] because he hates it here at [facility]. He can't understand why we can't see the bugs crawling on him. He claims his PO has seen them before and we should call them to confirm his story. 02/15/21 05:54 Police on scene to help de-escalate the pt. B52 ordered in case they are unsuccessful. 02/15/21 06:08 Pt became agitated and left the ER. Police let him go. His PO was contacted. 02/15/21 06:32 Departure - Departure Time of Disposition: 06:32 Disposition: Against Medical Advice 07 Condition: Undetermined Clinical Impression: Hallucination - Discharge Information *PRESCRIPTION DRUG MONITORING PROGRAM REVIEWED*: Not Applicable *COPY OF PRESCRIPTION DRUG MONITORING REPORT IN PATIENT [place]: Not Applicable Sepsis Event Note (ED) - Focused Exam Vital Signs: Vital Signs Temp Pulse Resp BP Pulse Ox 02/15/21 04:50 98.1 F 102 H 18 142/125 H 96
[2021-02-15] MEDS ORDERED: LORazepam 2 MG/ML SDV IM ONE (05:49)
[2021-02-15] MEDS ORDERED: Haloperidol Lactate 5 MG/ML SDV IM ONE (06:03)
[2021-02-15] MEDS ORDERED: diphenhydrAMINE 50 MG/ML SDV IM ONE (06:06)
== END 2021-02-15 06:30 | disposition left against medical advice (07) ==
LOC: DL.ED 04:40
DX: R44.3 Hallucinations, unspecified (principal); Z88.0 Allergy status to penicillin; Z88.1 Allergy status to other antibiotic agents; Z88.8 Allergy status to other drugs, medicaments and biological substances
CPT/HCPCS: 99282; 99284